=== PATIENT | male | born 2000 | race Caucasian/White ===

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

== ENCOUNTER 2020-07-18 07:38 | Emergency (ER) | payer OTHER, MEDICAID ==
--- NOTE | 2020-07-18 08:10 | EDM.PDOC ---
ED HPI GENERAL MEDICAL PROBLEM - General Chief Complaint: Upper Extremity Injury/Pain Stated Complaint: left index finger injury Time Seen by Provider: 07/18/20 07:50 Source of Information: Reports: Patient - History of Present Illness INITIAL COMMENTS - FREE TEXT/NARRATIVE: Patient presented to the ED because of a left index injury while at work. His finger got caught on a hook,where a machine is attached. He is able to extend and flex his left index finger but with pain. 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 - Infectious Disease History Infectious Disease History: Reports: Chicken Pox - Past Surgical History Male Surgical History: Reports: Other (See Below) Other Male Surgeries/Procedures: urinary stoma Social & Family History - Caffeine Use Caffeine Use: Reports: Soda - Living Situation & Occupation Living situation: Reports: with Family Occupation: Student Review of Systems - Review of Systems Review Of Systems: See Below Constitutional: Reports: No Symptoms Eyes: Reports: No Symptoms Ears: Reports: No Symptoms Nose: Reports: No Symptoms Mouth/Throat: Reports: No Symptoms Respiratory: Reports: No Symptoms Cardiovascular: Reports: No Symptoms GI/Abdominal: Reports: No Symptoms Genitourinary: Reports: No Symptoms Musculoskeletal: Reports: Other (left index finger pain) Skin: Reports: No Symptoms Neurological: Reports: No Symptoms ED EXAM, GENERAL - Physical Exam Exam: See Below Exam Limited By: No Limitations General Appearance: Alert, No Apparent Distress Eye Exam: Bilateral Eye: PERRL Ears: Normal External Exam Nose: Normal Inspection, Normal Mucosa, No Blood Throat/Mouth: Normal Inspection Head: Atraumatic, Normocephalic Neck: Normal Inspection, Supple, Non-Tender, Full Range of Motion Respiratory/Chest: No Respiratory Distress, Lungs Clear, Normal Breath Sounds, No Accessory Muscle Use Cardiovascular: Normal Peripheral Pulses, Regular Rate, Rhythm, No Edema, No Gallop, No JVD, No Murmur, No Rub GI/Abdominal: Normal Bowel Sounds, Soft, Non-Tender, No Organomegaly, No Distention Back Exam: Normal Inspection, Full Range of Motion Extremities: Normal Inspection, Other (tenderness and swelling left index finger.) Neurological: Alert, Oriented, CN II-XII Intact Psychiatric: Normal Affect, Normal Mood Skin Exam: Warm Course - Vital Signs Text/Narrative:: Xray left index finger-negative Last Recorded V/S: Last Vital Signs Temp 36.8 C 07/18/20 07:40 Pulse 90 07/18/20 07:40 Resp 16 07/18/20 07:40 BP 122/66 07/18/20 07:40 Pulse Ox 99 07/18/20 07:40 - Orders/Labs/Meds Orders: Active Orders 24 hr Category Date Time Status Fingers Second Digit Lt F1 [CR] Stat Exams 07/18/20 07:45 Taken Departure - Departure Time of Disposition: 08:30 Disposition: Home, Self-Care 01 Condition: Good Clinical Impression: Finger injury - Discharge Information Instructions: Finger Sprain, Adult Forms: ED Department Discharge Additional Instructions: Please read discharge instruction on finger injury/sprain Apply ice or soak your left index finger in ice water You may take ibuprofen 800 mg with tylenol 91244 mg every 8 hours as needed for pain Follow up as needed Sepsis Event Note (ED) - Evaluation Sepsis Screening Result: No Definite Risk - Focused Exam Vital Signs: Vital Signs Temp Pulse Resp BP Pulse Ox 07/18/20 07:40 36.8 C 90 16 122/66 99 - My Orders Last 24 Hours: My Active Orders 07/18/20 07:45 Fingers Second Digit Lt F1 [CR] Stat - Assessment/Plan Last 24 Hours: My Active Orders 07/18/20 07:45 Fingers Second Digit Lt F1 [CR] Stat
[2020-07-18 08:58] VITALS: BP 115/80; PULSE 78
--- NOTE | 2020-07-18 10:54 | CR ---
INDICATION: Injury - pinched on a hook. LEFT SECOND FINGER: Three views of the left index finger revealed no evidence of a fracture, dislocation, or other definite bone or joint abnormality. If symptoms persist - if occult fracture site is suspected clinically, reexamination in 10-14 days may be helpful. MTDD
== END 2020-07-18 08:43 | disposition home or self-care (01) ==
LOC: FB.ED 07:38
DX: S69.92XA Unspecified injury of left wrist, hand and finger(s), initial encounter (principal); Z79.899 Other long term (current) drug therapy; Z91.040 Latex allergy status; Z88.8 Allergy status to other drugs, medicaments and biological substances; W26.8XXA Contact with other sharp object(s), not elsewhere classified, initial encounter; Y99.0 Civilian activity done for income or pay
CPT/HCPCS: 73140-F1; 99000; 99283-25